=== PATIENT | female | born 2000 | race Caucasian/White ===

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

== ENCOUNTER 2019-08-11 10:22 | Emergency (ER) | payer MEDICAID, OTHER ==
[2019-08-11 10:54] VITALS: BP 118/68
--- NOTE | 2019-08-11 12:19 | UC ---
FLU HPI - HPI Summary HPI Summary: 19-year-old female presents with one-week history of subjective fever, chills, general malaise, body aches, nasal congestion, sore throat, chest congestion, and nonproductive cough. States over the past 2-3 days her symptoms have progressively been getting worse. Denies ear pain, dysphagia, chest pain, shortness of breath, abdominal pain, nausea, vomiting, or diarrhea. - History of Current Complaint Chief Complaint: UCRespiratory Stated Complaint: CONGESTION,COUGH,SINUS Time Seen by Provider: 08/11/19 11:59 Hx Obtained From: Patient Hx Last Menstrual Period: End march Pain Intensity: 0 - Allergy/Home Medications Allergies/Adverse Reactions: Allergies Allergy/AdvReac Type Severity Reaction Status Date / Time No Known Allergies Allergy Verified 08/11/19 10:52 Home Medications: Home Medications D-Methorphan/PE/Acetaminophen [Daytime Cold Relief Caplet] 1 each PO ONCE [History Confirmed 08/11/19] PMH/Surg Hx/FS Hx/Imm Hx Previously Healthy: Yes - Denies significant PMH - Surgical History Surgical History: Yes Surgery Procedure, Year, and Place: Right great toe nail removal - Family History Known Family History: Positive: Diabetes - Social History Occupation: Employed Full-time Lives: Alone Alcohol Use: Occasionally Substance Use Type: Marijuana Substance Use Comment - Amount & Last Used: nightly Smoking Status (MU): Light Every Day Tobacco Smoker Type: Cigarettes Amount Used/How Often: 1/2 PPD Length of Time of Smoking/Using Tobacco: 1yr Have You Smoked in the Last Year: Yes Household Exposure Type: Cigarettes - Immunization History Vaccination Up to Date: Yes Review of Systems All Other Systems Reviewed And Are Negative: Yes Constitutional: Positive: Fever, Chills, Fatigue Skin: Negative: Rash Eyes: Negative: Drainage, Eye Redness ENT: Positive: Sore Throat, Nasal Discharge, Sinus Congestion. Negative: Ear Ache, Sinus Pain/Tenderness Respiratory: Positive: Cough. Negative: Shortness Of Breath Cardiovascular: Negative: Palpitations, Chest Pain Gastrointestinal: Negative: Abdominal Pain, Vomiting, Diarrhea, Nausea Genitourinary: Positive: Negative Musculoskeletal: Positive: Myalgia Neurological: Positive: Negative Physical Exam - Summary Physical Exam Summary: GENERAL APPEARANCE: Alert and cooperative obese, young adult female who appears to be in no acute distress. EYES: Conjunctiva clear. No drainage. EARS: External auditory canals and tympanic membranes clear, hearing grossly intact. NOSE: Moderate nasal congestion. No nasal discharge. THROAT: Pharyngeal erythema. No tonsilar inflammation, swelling, exudate, or lesions. Uvula midline. NECK: Neck supple, non-tender without lymphadenopathy. CARDIAC: Normal S1 and S2. No S3, S4 or murmurs. Rhythm is regular. There is no peripheral edema, cyanosis or pallor. Extremities are warm and well perfused. Capillary refill is less than 2 seconds. Peripheral pulses intact. LUNGS: Clear to auscultation without rales, rhonchi, wheezing or diminished breath sounds. Dry, nonproductive cough. ABDOMEN: Positive bowel sounds. Soft, nondistended, nontender. No guarding or rebound. No masses or hepatosplenomegally. MUSKULOSKELETAL: ROM intact to all extremities. No joint erythema or tenderness. Normal muscular development. Normal gait. SKIN: Skin normal color, texture and turgor with no lesions or eruptions. Triage Information Reviewed: Yes Vital Signs: Initial Vital Signs Temp 97.3 F 08/11/19 10:49 Pulse 83 08/11/19 10:49 Resp 18 08/11/19 10:49 BP 118/68 08/11/19 10:49 Pulse Ox 99 08/11/19 10:49 Vital Signs Reviewed: Yes Flu Course/Dx - Course Course Of Treatment: 19-year-old female presents with one-week history of subjective fever, chills, general malaise, body aches, nasal congestion, sore throat, chest congestion, and nonproductive cough. States over the past 2-3 days her symptoms have progressively been getting worse. Denies ear pain, dysphagia, chest pain, shortness of breath, abdominal pain, nausea, vomiting, or diarrhea. Afebrile. Vital signs stable. Patient had moderate nasal congestion, clear bilateral TMs , pharyngeal erythema without tonsillar swelling or exudate, no cervical lymphadenopathy, clear bilateral breath sounds, dry nonproductive cough, and otherwise unremarkable exam. Discussed with patient that her symptoms are likely from a viral upper respiratory infection however with her worsening of symptoms she is requesting treatment with a antibiotic this time. Reviewed the risks and benefits of treating with an antibiotic. Patient verbalizes understanding and would still like to proceed. We'll start her on a course of azithromycin as well as recommend symptomatic treatment for a URI including prescriptions were fluticasone nasal spray and Tessalon Perles. She is to follow-up with her primary care provider in 3-5 days if symptoms are not improving. Anticipatory guidance and warning symptoms were reviewed with the patient. Verbalizes understanding and agrees with plan of care. - Differential Dx/Diagnosis Differential Diagnosis/HQI/PQRI: Bronchitis, Influenza, Pneumonia, Upper Respiratory Infection Provider Diagnosis: URI with cough and congestion Discharge ED - Sign-Out/Discharge Documenting (check all that apply): Patient Departure All imaging exams completed and their final reports reviewed: No Studies - Discharge Plan Condition: Stable Disposition: HOME Prescriptions: Azithromyxin TIFFANIE (NF) [Z-Tiffanie (Zithromax) 250 mg tabs #6] 2 tab PO .TODAY, THEN 1 DAILY #6 tab Benzonatate CAP* [Tessalon 100 MG CAP*] 100 mg PO TID PRN #21 cap PRN Reason: Cough Fluticasone NASAL SPRAY 50MCG* [Flonase NASAL SPRAY 50MCG*] 2 spray BOTH NARES DAILY #1 btl Patient Education Materials: Upper Respiratory Infection (ED) Forms: *Work Release Referrals: No Primary Care Phys,NOPCP [Primary Care Provider] - Additional Instructions: Your history and exam are consistent with an upper respiratory infection. Considering the persistent fever and worsening of symptoms he was started on an antibiotic to treat for an infection. Taking azithromycin 2 tabs today then 1 tablet daily for the next 4 days. Drink plenty of fluids to avoid dehydration especially if you are running any fever. Use a saline rinse kit such as Neti Pot or NeilMed at least twice a day to help thin secretions and promote drainage of the sinuses. Use fluticasone (Flonase) nasal spray 2 sprays each nostril once daily. Take Tessalon Perles 1 capsule every 8 hours as needed for cough. Take over the counter acetaminophen (Tylenol) or ibuprofen (Advil, Motrin) according to directions as needed for pain or fever. Use salt water gargles several times a day if you have a sore throat. You may also use Chloraseptic spray or Cepacol lonzenges according to directions which contain a numbing medication and can provide some temporary relief from your sore throat. Follow up with your primary care provider in 3-5 days if symptoms persist. Seek immediate medical attention in the emergency room if you have fever greater than 100.5 F despite taking acetaminophen or ibuprofen, have chest pain , difficulty breathing, are unable to swallow, or have any worsening of symptoms. - Billing Disposition and Condition Condition: STABLE Disposition: Home
== END 2019-08-11 12:34 | disposition home or self-care (01) ==
LOC: UCCORT 10:22
DX: J06.9 Acute upper respiratory infection, unspecified (principal); R09.89 Other specified symptoms and signs involving the circulatory and respiratory systems; F17.210 Nicotine dependence, cigarettes, uncomplicated
CPT/HCPCS: 99212; G0463

== ENCOUNTER 2019-09-02 21:10 | Emergency (ER) | payer OTHER ==
[2019-09-02 21:21] VITALS: BP 112/65
--- NOTE | 2019-09-02 21:28 | UC ---
Back Pain HPI - HPI Summary HPI Summary: 19-year-old female who was in the parking lot at her workplace yesterday when she slipped on ice and fell back onto her buttocks and her back. She states she did hit the back of her head but had no injury or pain. She denies any neck pain. No loss of consciousness. - History of Current Complaint Chief Complaint: UCBackPain Stated Complaint: LOWER BACK PAIN Time Seen by Provider: 09/02/19 21:14 Hx Obtained From: Patient Hx Last Menstrual Period: Aug 16 ?: No Onset/Duration: Sudden Onset Timing: Intermittent Severity Initially: Mild Severity Currently: Mild Pain Intensity: 7 Character: Dull, Aching Aggravating Factor(s): Movement, Lifting, Bending Alleviating Factor(s): Rest Associated Signs And Symptoms: Positive: Negative. Negative: Weakness, Numbness , Tingling, Abdominal Pain, Flank Pain, Bladder Incontinence, Bowel Incontinence - Allergies/Home Medications Allergies/Adverse Reactions: Allergies Allergy/AdvReac Type Severity Reaction Status Date / Time No Known Allergies Allergy Verified 09/02/19 21:21 Home Medications: Home Medications NK [No Home Medications Reported] 09/02/19 [History Confirmed 09/02/19] PMH/Surg Hx/FS Hx/Imm Hx Previously Healthy: Yes Psychological History: Depression - Surgical History Surgical History: Yes Surgery Procedure, Year, and Place: Right great toe nail removal - Family History Known Family History: Positive: Diabetes - Social History Occupation: Employed Full-time Alcohol Use: Occasionally Substance Use Type: Marijuana Substance Use Comment - Amount & Last Used: nightly Smoking Status (MU): Current Every Day Smoker Type: Cigarettes Amount Used/How Often: 1/2 PPD Length of Time of Smoking/Using Tobacco: 1yr Have You Smoked in the Last Year: Yes Household Exposure Type: Cigarettes - Immunization History Vaccination Up to Date: Yes Review of Systems All Other Systems Reviewed And Are Negative: Yes Musculoskeletal: Positive: Other: - Mild low back pain. Is Patient Immunocompromised?: No Physical Exam Triage Information Reviewed: Yes Appearance: Well-Appearing, No Pain Distress, Well-Nourished Vital Signs: Initial Vital Signs Temp 97.7 F 09/02/19 21:15 Pulse 80 09/02/19 21:15 Resp 18 09/02/19 21:15 BP 112/65 09/02/19 21:15 Pulse Ox 99 09/02/19 21:15 Vital Signs Reviewed: Yes Eyes: Positive: Conjunctiva Clear - PERRLA, EOMI Neck: Positive: Supple, Nontender - C-spine nontender, No Lymphadenopathy Respiratory: Positive: Chest non-tender, Lungs clear, Normal breath sounds, No respiratory distress, No accessory muscle use Cardiovascular: Positive: RRR, No Murmur, Pulses Normal, Brisk Capillary Refill Musculoskeletal Exam: Normal Musculoskeletal: Positive: Strength Intact, ROM Intact, Other: - Good peripheral pulses neuro sensation capillary refill. Good arm and leg strength against resistance, full range of motion. Patient ambulates without difficulty and gets up on the exam table without difficulty. Neurological: Positive: Alert, Muscle Tone Normal - Cranial nerves II through XII are intact. Skin: Positive: Other - No bruising, erythema, swelling or deformity in the area of concern of her lower back. Minimal tenderness on palpation to the lower paraspinal muscles of her lower back. Back Pain Course/Dx - Course Course Of Treatment: The patient is comfortable here. I don't feel there is a need for x-rays because she moves so comfortably without pain. She is to follow-up with her primary care provider or [facility] if no improvement in 3 or 4 days. Patient requested a work note for yesterday. - Differential Dx/Diagnosis Provider Diagnosis: Low back strain Discharge ED - Sign-Out/Discharge Documenting (check all that apply): Patient Departure All imaging exams completed and their final reports reviewed: No Studies - Discharge Plan Condition: Good Disposition: HOME Patient Education Materials: Acute Low Back Pain (ED) Forms: *Work Release Referrals: No Primary Care Phys,NOPCP [Primary Care Provider] - [facility] [Outside] Additional Instructions: Apply ice intermittently to the sore area. May take Tylenol every 4 hours and alternate with Motrin every 8 hours for pain. Follow-up with [facility] if you have any worsening symptoms. - Billing Disposition and Condition Condition: GOOD Disposition: Home
== END 2019-09-02 21:35 | disposition home or self-care (01) ==
LOC: UCCORT 21:10
DX: S39.012A Strain of muscle, fascia and tendon of lower back, initial encounter (principal); F17.210 Nicotine dependence, cigarettes, uncomplicated; W00.0XXA Fall on same level due to ice and snow, initial encounter; Y92.9 Unspecified place or not applicable
CPT/HCPCS: 99211; G0463

== ENCOUNTER 2019-10-03 17:43 | Emergency (ER) | payer OTHER ==
[2019-10-03 19:01] VITALS: BP 109/68
[2019-10-03] MEDS ORDERED: Ondansetron ODT TAB* 4 MG PO ONE (19:37)
[2019-10-03] MEDS ORDERED: Pantoprazole TAB * 40 MG TAB PO ONE (19:37)
--- NOTE | 2019-10-03 19:44 | UC ---
Nausea/Vomiting/Diarrhea HPI - HPI Summary HPI Summary: 19-year-old woman comes in with a chief complaint of nausea vomiting diarrhea and epigastric pain. 2 days ago she started with some lower bilateral abdominal discomfort then she ate at a fast food restaurant and started having upper epigastric pain. She's had vomiting he's had diarrhea. The diarrhea is green and watery. She started her menstrual period 5 days ago. Denies any abnormal vaginal discharge or concern of sexually transmitted action or . Has no prior abdominal surgeries. There is some burning character to the discomfort in the upper abdomen. Pain is worse is a 9 out of 10 right now it's a 5 out of 10. The pain is intermittent and variable in intensity. - History of Current Complaint Chief Complaint: UCAbdominalPain Stated Complaint: VOMITING, CHILLS Time Seen by Provider: 10/03/19 19:22 Hx Last Menstrual Period: 09/29/19 Pain Intensity: 6 - Allergies/Home Medications Allergies/Adverse Reactions: Allergies Allergy/AdvReac Type Severity Reaction Status Date / Time No Known Allergies Allergy Verified 10/03/19 18:53 Home Medications: Home Medications Ibuprofen TAB* [Advil TAB*] 600 mg PO ONCE 10/03/19 [History Confirmed 10/03/19] PMH/Surg Hx/FS Hx/Imm Hx Previously Healthy: Yes - Surgical History Surgical History: Yes Surgery Procedure, Year, and Place: Right great toe nail removal - Family History Known Family History: Positive: Diabetes - Social History Alcohol Use: Occasionally Substance Use Type: Marijuana Substance Use Comment - Amount & Last Used: nightly Smoking Status (MU): Current Every Day Smoker Type: Cigarettes Amount Used/How Often: 1/2 PPD Length of Time of Smoking/Using Tobacco: 1yr Have You Smoked in the Last Year: Yes Household Exposure Type: Cigarettes - Immunization History Vaccination Up to Date: Yes Review of Systems All Other Systems Reviewed And Are Negative: Yes Constitutional: Positive: Other - SEE HPI Skin: Positive: Negative Eyes: Positive: Negative ENT: Positive: Negative Respiratory: Positive: Negative Cardiovascular: Positive: Negative Gastrointestinal: Positive: Abdominal Pain, Vomiting, Diarrhea, Nausea, Other - SEE HPI Genitourinary: Positive: Negative Motor: Positive: Negative Neurovascular: Positive: Negative Musculoskeletal: Positive: Negative Neurological: Positive: Negative Psychological: Positive: Negative Is Patient Immunocompromised?: No Physical Exam Triage Information Reviewed: Yes Appearance: Well-Appearing, No Pain Distress, Well-Nourished Vital Signs: Initial Vital Signs Temp 98.5 F 10/03/19 18:53 Pulse 80 10/03/19 18:53 Resp 16 10/03/19 18:53 BP 109/68 10/03/19 18:53 Pulse Ox 98 10/03/19 18:53 Vital Signs Reviewed: Yes Eye Exam: Normal Eyes: Positive: Conjunctiva Clear ENT: Positive: Pharynx normal Neck: Positive: Supple Respiratory: Positive: Lungs clear, Normal breath sounds, No respiratory distress Cardiovascular: Positive: RRR Abdomen Description: Positive: Other: - Negative heel strike negative obturator sign. Lower abdomen is nontender to palpation. Patient is tender to palpation in the epigastrium and left upper quadrant. Bowel Sounds: Positive: Present Musculoskeletal: Positive: Strength Intact, ROM Intact Neurological: Positive: Alert, Muscle Tone Normal Psychological: Positive: Age Appropriate Behavior Skin Exam: Normal Naus/Vom/Diarrhea Course/Dx - Course Course Of Treatment: Patient is tender in the epigastrium. No fevers here in clinic. Right upper quadrant was only minimally tender the greatest tenderness was in the epigastrium. No blood seen in the stool. At this time the plan is to treat the nausea and vomiting with Zofran and the burning with omeprazole. I let the patient know that if she does not improve or she worsens she's had any further evaluation emergency department. - Differential Dx/Diagnosis Provider Diagnosis: Nausea vomiting and diarrhea Condition At Discharge: Stable Discharge ED - Sign-Out/Discharge Documenting (check all that apply): Patient Departure All imaging exams completed and their final reports reviewed: No Studies - Discharge Plan Condition: Stable Disposition: HOME Prescriptions: Omeprazole 20 mg PO BID #30 capsule. Ondansetron ODT TAB* [Zofran 4 MG Odt TAB*] 4 mg PO Q6H PRN #10 tab.odt PRN Reason: Nausea/Vomiting Patient Education Materials: Acute Nausea and Vomiting (ED), Acute Diarrhea (ED ), Epigastric Pain (ED) Forms: *Work Release Referrals: [facility] [Outside] Additional Instructions: FOLLOW UP WITH YOUR DOCTOR IF NOT COMPLETELY IMPROVED. GO TO THE EMERGENCY DEPARTMENT IF WORSE; PAIN, ESPECIALLY PAIN IN THE RIGHT LOWER ABDOMEN, FEVER, BLOOD IN YOUR STOOL, DEHYDRATION, YOU FEEL ILL OR ANY QUESTIONS OR CONCERNS. - Billing Disposition and Condition Condition: STABLE Disposition: Home
== END 2019-10-03 19:57 | disposition home or self-care (01) ==
LOC: UCCORT 17:43
DX: R11.2 Nausea with vomiting, unspecified (principal); R19.7 Diarrhea, unspecified; R10.13 Epigastric pain; F17.210 Nicotine dependence, cigarettes, uncomplicated
CPT/HCPCS: 99212; A9270-GY; G0463